=== PATIENT | female | born 1980 ===

== ENCOUNTER 2021-10-09 08:09 | Outpatient (CLI) | payer OTHER ==
[2021-10-09] MEDS ORDERED: Magnevist 469MG/ML 20 ML VIAL ONE (09:29)
== END 2021-10-09 08:10 | disposition home or self-care (01) ==
LOC: MRI 08:09
PROVIDERS: ATTEND Family Medicine
DX: Z87.19 Personal history of other diseases of the digestive system (principal); K76.0 Fatty (change of) liver, not elsewhere classified; N28.1 Cyst of kidney, acquired; Z90.49 Acquired absence of other specified parts of digestive tract
CPT/HCPCS: 74183

== ENCOUNTER 2021-11-23 12:15 | Outpatient (CLI) | payer OTHER | END 2021-11-23 12:16 | disposition home or self-care (01) | LOC: SCSMRI 12:15 | PROVIDERS: ATTEND Family Medicine | DX: K85.90 Acute pancreatitis without necrosis or infection, unspecified (principal); K76.0 Fatty (change of) liver, not elsewhere classified | CPT/HCPCS: 74183 ==